=== PATIENT | male | born 1950 | race Caucasian/White ===

== ENCOUNTER → 2018-04-21 16:37 | Outpatient (REF) | payer MEDICARE, SELFPAY ==
[2018-04-21 17:36] LABS: Alanine Aminotransferase 84 IU/L (21-72); Albumin 2.6 g/dL (3.5-5.0); Albumin Globulin Ratio 0.7 (1.0-2.8); Alkaline Phosphatase 107 U/L (38-126); Aspartate Aminotransferase 92 IU/L (17-59); BUN Creatinine Ratio 13.6 (6-22); Bilirubin Total 0.3 mg/dL (0.2-1.3); Blood Urea Nitrogen 15 mg/dL (9-20); C-Reactive Protein Quant 7.1 mg/dL (<1.0); Calcium 8.4 mg/dL (8.4-10.2); Carbon Dioxide 29 mmol/L (22-32); Chloride 99 mmol/L (98-107); Estimated Glomerular Filt Rate > 60.0 mL/min (>60); Globulin 3.8 g/dL (1.7-4.1); Glucose 215 mg/dL (80-110); HEMOLYSIS 30 (0-50); Potassium 5.2 mmol/L (3.4-5.1); Sodium 133 mmol/L (137-145); Total Protein 6.4 g/dL (6.3-8.2)
[2018-04-21 17:37] LABS: Add Manual Diff / Slide Review NO; Basophils Percent Auto 0.7 % (0-2); Hematocrit 26.7 % (41-53); Hemoglobin 8.3 g/dL (13.5-17.5); Lymphocytes Percent Auto 12.8 % (25-40); Mean Corpuscular Hemoglobin 24.2 PG (26-34); Monocytes Percent Auto 6.4 % (3-14); Neutrophils Absolute Auto 9400 /uL (3000-5900); Neutrophils Percent Auto 79.1 % (50-75); Platelet Count 313 X10^3/uL (150-400); Red Blood Cell Count 3.43 X10^6/uL (4.5-5.9); Red Cell Distribution Width 19.2 % (11.6-14.8); White Blood Cell Count 11.9 X10^3/uL (4.5-11.0)
[2018-04-21 17:41] LABS: Erythrocyte Sedimentation Rate 78 MM/HR (0-15)
== END ==
LOC: LAB 16:37
PROVIDERS: Visit Provider Family Medicine
DX: K75.0 Abscess of liver (principal)
CPT/HCPCS: 80053; 85025; 85651; 86140

== ENCOUNTER → 2018-04-28 15:56 | Outpatient (REF) | payer MEDICARE, SELFPAY ==
[2018-04-28 16:14] LABS: Add Manual Diff / Slide Review NO; Basophils Percent Auto 1.2 % (0-2); Hematocrit 26.9 % (41-53); Hemoglobin 8.5 g/dL (13.5-17.5); Lymphocytes Percent Auto 18.9 % (25-40); Mean Corpuscular HGB Conc 31.7 % (30-36); Mean Corpuscular Hemoglobin 24.3 PG (26-34); Mean Corpuscular Volume 76.5 fL (80-100); Monocytes Percent Auto 7.5 % (3-14); Neutrophils Absolute Auto 7000 /uL (3000-5900); Neutrophils Percent Auto 70.4 % (50-75); Platelet Count 592 X10^3/uL (150-400); Red Blood Cell Count 3.51 X10^6/uL (4.5-5.9); White Blood Cell Count 9.9 X10^3/uL (4.5-11.0)
[2018-04-28 16:36] LABS: Alanine Aminotransferase 24 IU/L (21-72); Albumin 2.8 g/dL (3.5-5.0); Albumin Globulin Ratio 0.7 (1.0-2.8); Alkaline Phosphatase 86 U/L (38-126); Aspartate Aminotransferase 13 IU/L (17-59); BUN Creatinine Ratio 17.3 (6-22); Bilirubin Total 0.2 mg/dL (0.2-1.3); Blood Urea Nitrogen 19 mg/dL (9-20); C-Reactive Protein Quant 3.1 mg/dL (<1.0); Calcium 8.8 mg/dL (8.4-10.2); Carbon Dioxide 27 mmol/L (22-32); Chloride 98 mmol/L (98-107); Estimated Glomerular Filt Rate > 60.0 mL/min (>60); Globulin 4.1 g/dL (1.7-4.1); Glucose 166 mg/dL (80-110); HEMOLYSIS < 15 (0-50); Potassium 5.3 mmol/L (3.4-5.1); Sodium 134 mmol/L (137-145); Total Protein 6.9 g/dL (6.3-8.2)
[2018-04-28 16:41] LABS: Erythrocyte Sedimentation Rate 123 MM/HR (0-15)
== END ==
LOC: LAB 15:56
PROVIDERS: Visit Provider Family Medicine
DX: K75.0 Abscess of liver (principal); R78.81 Bacteremia
CPT/HCPCS: 80053; 85025; 85651; 86140

== ENCOUNTER 2019-05-26 19:15 | Emergency (ER) | payer MEDICARE, SELFPAY ==
[2019-05-26 19:33] VITALS: BP 169/76; PULSE 84; RESP 16; TEMP 36.6; O2SAT 98; BMI 28.8
--- NOTE | 2019-05-26 19:55 | PC.NURSE ---
recent spinal fusion, in neck brace with intact incision. c/o swelling in BL LE which is worse with walking and improves with elevation. 2+ pulses BL. 1+ pitting edema. Skin warm. h/o DM with intact sensation. reports tingling feeling intermittently. was advised by Dr Escamilla to visit ED for r/o DVT. AAOx3, denies CP SOB. lungs clear. Lab in to draw protocol labs. awaiting MD assessment
[2019-05-26 20:12] LABS: Add Manual Diff / Slide Review NO; Basophils Absolute Auto 100 /uL (0-100); Basophils Percent Auto 0.7 % (0-2); Eosinophils Absolute Auto 300 /uL (0-450); Eosinophils Percent Auto 2.9 % (2-4); Hematocrit 29.8 % (41-53); Hemoglobin 10.1 g/dL (13.5-17.5); Lymphocytes Absolute Auto 2100 /uL (1100-4500); Lymphocytes Percent Auto 21.1 % (25-40); Mean Corpuscular HGB Conc 33.8 % (30-36); Mean Corpuscular Hemoglobin 29.6 PG (26-34); Mean Corpuscular Volume 87.7 fL (80-100); Monocytes Absolute Auto 800 /uL (0-900); Monocytes Percent Auto 8.1 % (3-14); Neutrophils Absolute Auto 6600 /uL (1500-7000); Neutrophils Percent Auto 67.2 % (50-75); Platelet Count 334 X10^3/uL (150-400); White Blood Cell Count 9.8 X10^3/uL (4.5-11.0)
[2019-05-26 20:18] LABS: INR 1.1 (0.9-1.3); Prothrombin Time 12.2 SECONDS (10.1-12.7)
[2019-05-26 20:21] LABS: BUN Creatinine Ratio 23.8 (6-22); Blood Urea Nitrogen 31 mg/dL (9-20); Calcium 9.4 mg/dL (8.4-10.2); Carbon Dioxide 24 mmol/L (22-32); Chloride 106 mmol/L (98-107); Estimated Glomerular Filt Rate 54.7 mL/min (>60); Glucose 220 mg/dL (80-110); HEMOLYSIS < 15 (0-50); Potassium 4.1 mmol/L (3.4-5.1); Sodium 141 mmol/L (137-145)
--- NOTE | 2019-05-26 20:38 | DI.US.S_ITS ---
PROCEDURE: US PERIPH VENOUS LOW EXTREM LT INDICATIONS: SWELLING AND PAIN, POST OP TECHNIQUE: Real-time imaging, as well as color and pulse Doppler interrogation, were performed of the lower extremity deep veins from the inguinal ligament to the popliteal fossa. COMPARISON: None. FINDINGS: The common femoral and femoral veins are normally compressible, and free of intraluminal thrombus. Nonocclusive thrombus is visualized within the left trunk of the popliteal vein. Color and pulse Doppler demonstrate normal phasic intraluminal flow. There is normal augmentation response to distal compression maneuver. IMPRESSION: Nonocclusive thrombus within the popliteal vein. These findings were discussed with Dr. Payan at 9:44 PM on 05/26/19. Dictated by: Betsy Butcher M.D. on 05/26/2019 at 21:42 Approved by: Betsy Butcher M.D. on 05/26/2019 at 21:44
--- NOTE | 2019-05-26 20:40 | ED.EXTPRO ---
HPI - Extremity Problem General Chief complaint: Extremity Problem,Nontraumatic Stated complaint: RULE OUT BLOOD CLOTS Time Seen by Provider: 05/26/19 20:19 Source: patient Mode of arrival: ambulatory Limitations: no limitations History of Present Illness HPI Narrative: Patient is a 69-year-old male who presents with left leg swelling. He is 3 weeks postoperative anterior cervical surgery. He has been having swelling he has in both his legs but it is obvious his last is worse than his right. Yesterday he started having pain and discomfort while he was walking in his left leg. He typically have pain in the calf. He does not have pain all the time in left calf. He has absolutely no chest pain or shortness of breath. MD Complaint: extremity swelling Related Data Home Medications Medication Instructions Recorded Confirmed diazepam 5 mg #0 12/28/17 metformin [Glucophage] 1,000 mg PO BIDCC #0 12/28/17 insulin glargine [Lantus U-100 30 u SQ BID #0 01/03/18 Insulin] Previous Rx's Medication Instructions Recorded docusate sodium [Colace] 100 mg PO BID #30 cap 12/28/17 docusate sodium [Colace] 100 mg PO BID #14 cap 01/12/18 gabapentin [Neurontin] 300 mg PO BID #60 cap 01/12/18 lisinopril 10 mg PO QDAY #30 tab 01/12/18 metformin 1,000 mg PO BIDCC #60 tab 01/12/18 oxycodone 5 mg PO Q6HP PRN #20 tab 01/12/18 pantoprazole [Protonix] 40 mg PO QDAY #30 tab 01/12/18 sennosides [Senokot] 8.6 mg PO QDAY #10 tab 01/12/18 apixaban [Eliquis] See Rx Instructions .ROUTE 05/26/19 .COMPLEX #74 each Allergies Allergy/AdvReac Type Severity Reaction Status Date / Time No Known Drug Allergies Allergy Verified 05/26/19 19:33 Review of Systems Review of Systems Narrative: GENERAL: Denies chills, fatigue, malaise, fever, sweats, travel HEENT: Denies sinus pain, ear pain, sore throat, difficulty swallowing, neck pain RESPIRATORY: Denies dyspnea, cough, wheezing, hemoptysis, sputum. CARDIOVASCULAR: Denies chest pain, palpitations, orthopnea, edema GASTROINTESTINAL: Denies nausea, vomiting, abdominal pain, diarrhea, constipation, melena. : Denies dysuria, frequency, incontinence, hematuria, urinary retention, flank pain. MUSCULOSKELETAL: See HPI SKIN: No rash, no erythema, no pruritus NEUROLOGIC: Denies weakness, dizziness, headache, numbness, change in speech, confusion PSYCHIATRIC: No concerning psychosocial issues. 12 point review of systems is negative except for those stated above and HPI [facility] Medical History Cervical stenosis of spine (Inactive) Cervical vertebral fusion (Acute) Perforated bowel (Inactive Unknown) Social History (System 01/21/18 @ 14:31 by Emi Barrera) Smoking Status: Unknown if ever smoked Social History Smoking Status: Unknown if ever smoked Exam Initial Vital Signs Initial Vital Signs: Vital Signs Temperature 97.9 F 05/26/19 19:33 Pulse Rate 84 05/26/19 19:33 Respiratory Rate 16 05/26/19 19:33 Blood Pressure 169/76 H 05/26/19 19:33 Pulse Oximetry 98 05/26/19 19:33 GENERAL: Well-appearing, well-nourished and in no acute distress. HEENT: Head atraumatic,EOMI, pupils reactive, neck in [place] collar CARDIOVASCULAR: Regular rate and rhythm without murmurs, rubs or gallops. RESPIRATORY: Breath sounds equal bilaterally, no wheezes rales or rhonchi. ABDOMEN: Soft, nontender. Normoactive bowel sounds all 4 quadrants. No guarding or rebound. EXTREMITIES: Normal range of motion, no clubbing or edema. Neurovascularly intact Left leg more swollen than right leg no tenderness of calf no erythema distal pedal pulses intact bilaterally NEUROLOGICAL: Alert and oriented x4.Normal gait and speech. Cranial nerves II through XII grossly intact. SKIN: Warm, dry, no laceration, no petechiae, no rashes or lesions. Course Orders Ordered: ED Orders 05/26/19 20:03 Basic Metabolic Panel Stat Complete Blood Count AUTO DIFF Stat Prothrombin Time INR Stat 05/26/19 20:38 US periph venous low extrem lt Stat Discontinued Medications Apixaban (Eliquis) 5 mg PO NOW ONE Stop: 05/26/19 22:12 Last Admin: 05/26/19 22:15 Dose: Not Given Documented by: AMISHA Apixaban (Eliquis) 10 mg PO NOW ONE Stop: 05/26/19 22:14 Last Admin: 05/26/19 22:46 Dose: 10 mg Documented by: AMISHA Vital Signs Vital signs: Vital Signs - 8 hr 05/26/19 19:33 05/26/19 21:57 Temperature 97.9 F Pulse Rate 84 78 Respiratory Rate 16 16 Blood Pressure 169/76 H Blood Pressure [Left Arm] 160/65 H Pulse Oximetry 98 98 MDM - Extremity (Nontraumatic) Lab Data Attestation: I reviewed the patient's lab results. Result diagrams: 05/26/19 20:03 05/26/19 20:03 Labs: Lab Results 05/26/19 05/26/19 05/26/19 Range/Units 20:03 20:03 20:03 WBC 9.8 (4.5-11.0) X10^3/uL RBC 3.40 L (4.5-5.9) X10^6/uL Hgb 10.1 L (13.5-17.5) g/dL Hct 29.8 L (41-53) % MCV 87.7 (80-100) fL MCH 29.6 (26-34) PG MCHC 33.8 (30-36) % RDW 14.0 (11.6-14.8) % Plt Count 334 (150-400) X10^3/uL Neut % (Auto) 67.2 (50-75) % Lymph % (Auto) 21.1 L (25-40) % [place] % (Auto) 8.1 (3-14) % Eos % (Auto) 2.9 (2-4) % Baso % (Auto) 0.7 (0-2) % Neut # (Auto) 6600 (0687-8721) /uL Lymph # (Auto) 2100 (3902-5428) /uL [place] # (Auto) 800 (0-900) /uL Eos # (Auto) 300 (0-450) /uL Baso # (Auto) 100 (0-100) /uL PT 12.2 (10.1-12.7) SECONDS INR 1.1 (0.9-1.3) Sodium 141 (137-145) mmol/L Potassium 4.1 (3.4-5.1) mmol/L Chloride 106 (98-107) mmol/L Carbon Dioxide 24 (22-32) mmol/L BUN 31 H (9-20) mg/dL Creatinine 1.30 H (0.66-1.25) mg/dL Estimated GFR 54.7 L (>60) mL/min BUN/Creatinine Ratio 23.8 H (6-22) Glucose 220 H (80-110) mg/dL Calcium 9.4 (8.4-10.2) mg/dL Imaging Data Venous US: Radiologist's impression: PROCEDURE: US PERIPH VENOUS LOW EXTREM LT INDICATIONS: SWELLING AND PAIN, POST OP TECHNIQUE: Real-time imaging, as well as color and pulse Doppler interrogation, were performed of the lower extremity deep veins from the inguinal ligament to the popliteal fossa. COMPARISON: None. FINDINGS: The common femoral and femoral veins are normally compressible, and free of intraluminal thrombus. Nonocclusive thrombus is visualized within the left trunk of the popliteal vein. Color and pulse Doppler demonstrate normal phasic intraluminal flow. There is normal augmentation response to distal compression maneuver. IMPRESSION: Nonocclusive thrombus within the popliteal vein. These findings were discussed with Dr. Payan at 9:44 PM on 05/26/19. Dictated by: Betsy Butcher M.D. on 05/26/2019 at 21:42 MDM Narrative Medical decision making narrative: Patient is hemodynamically stable is nonocclusive popliteal DVT in the left leg. He is started on Eliquis. I have discussed a specific risks with him including bleeding and when to return to the ER. He agrees to get started on anticoagulation. I discussed all findings with the patient and spouse, Education has been performed regarding treatment plan, diagnosis, warning signs and symptoms and all concerns have been addressed. Verbally agree with and understood all of the above. Discharge Plan Departure Patient Disposition: Home Clinical Impression: Deep vein thrombosis of lower extremity Qualifiers: Affected thrombotic vein of extremity: popliteal Chronicity: acute Laterality: left Qualified Code(s): I82.432 - Acute embolism and thrombosis of left popliteal vein Discharge Date/Time: 05/26/19 23:02 Instructions: DI for Deep Vein Thrombosis Activity Restrictions/Additional Instructions: *You have been diagnosed with deep vein thrombosis *What to do: Blood clot should dissolve on its own. He will be on Eliquis for 3-6 months. *Continue to take medications as directed Eliquis 10 mg twice a day for 7 days then 5 mg twice a day *Follow up with your primary care provider in 2-3 days *Return to ER if you should have fall and hitting her head, bleeding that does not stop with proper treatment, any black stool or bright red stool, chest pain, shortness of breath or any new, worsening or concerning symptoms Prescriptions: New Eliquis 5 mg (74 tabs) tablets,dose pack See Rx Instructions .ROUTE .COMPLEX Qty: 74 RF: 0 No Action diazepam 5 MG tablet 5 mg Qty: 0 RF: 0 metformin [Glucophage] 1,000 MG tablet 1,000 mg PO BIDCC Qty: 0 RF: 0 docusate sodium [Colace] 100 MG capsule 100 mg PO BID Qty: 30 RF: 1 insulin glargine [Lantus U-100 Insulin] 100 UNIT/1 ML solution 30 u SQ BID Qty: 0 RF: 0 gabapentin [Neurontin] 300 MG capsule 300 mg PO BID Qty: 60 RF: 0 docusate sodium [Colace] 100 MG capsule 100 mg PO BID Qty: 14 RF: 1 oxycodone 5 MG tablet 5 mg PO Q6HP PRNQty: 20 RF: 0 sennosides [Senokot] 8.6 MG tablet 8.6 mg PO QDAY Qty: 10 RF: 1 lisinopril 10 MG tablet 10 mg PO QDAY Qty: 30 RF: 0 metformin 1,000 MG tablet 1,000 mg PO BIDCC Qty: 60 RF: 0 pantoprazole [Protonix] 40 MG tablet,delayed release (DR/EC) 40 mg PO QDAY Qty: 30 RF: 1 Referrals: Bobby Escamilla MD [Primary Care Provider] -
--- NOTE | 2019-05-26 20:54 | PC.NURSE ---
Pt awaiting US. NAD. resting on stretcher. needs met at this time.
[2019-05-26 21:57] VITALS: BP 160/65; PULSE 78; RESP 16; O2SAT 98
[2019-05-26] MEDS: APIXABAN 5 MG TABLET 10 MG PO (22:46)
== END 2019-05-26 23:02 | disposition home or self-care (01) ==
PROVIDERS: Emergency Provider Emergency Medicine; Family Provider Family Medicine; PCP Family Medicine
DX: I82.432 Acute embolism and thrombosis of left popliteal vein (principal)
CPT/HCPCS: 36415; 80048; 85025; 85610; 93971; 99282; 99284

== ENCOUNTER → 2019-07-08 12:47 | Outpatient (CLI) | payer MEDICARE, SELFPAY ==
--- NOTE | 2019-07-08 | DI.US.S_ITS ---
PROCEDURE: US PERIP VENOUS LOW EXTREM LT INDICATIONS: ACUTE EMBOLISMAND THROMBIS OF UNSPECIFIED DEEP TECHNIQUE: Real-time imaging, as well as color and pulse Doppler interrogation, were performed of the lower extremity deep veins from the inguinal ligament to the popliteal fossa. COMPARISON: [facility], , [facility] VENOUS LOW EXTREM LT, 05/26/2019, 21:23. FINDINGS: The common femoral, femoral and popliteal veins are normally compressible, and free of intraluminal thrombus. Color and pulse Doppler demonstrate normal phasic intraluminal flow. There is normal augmentation response to distal compression maneuver. IMPRESSION: No DVT found. Dictated by: Arnaldo Hunt M.D. on 07/08/2019 at 15:03 Approved by: Arnaldo Hunt M.D. on 07/08/2019 at 15:04
== END ==
PROVIDERS: Family Provider Family Medicine; PCP Family Medicine; Visit Provider Physician Assistant Medical
DX: I82.402 Acute embolism and thrombosis of unspecified deep veins of left lower extremity (principal)
CPT/HCPCS: 93971